=== PATIENT | female | born 1960 | race African-American/Black ===

== ENCOUNTER 2019-08-21 21:15 | Emergency (ER) | payer MEDICARE, MEDICAID ==
[~2019-08-21] VITALS: Ht 170.2 cm; Wt 115.9 kg
[~2019-08-21 21:15] MED LIST: AMLO5TAB9 PO; ATEN50TA PO
[2019-08-21] MEDS ORDERED: DILT120C48 PO (21:37)
[2019-08-21] MEDS ORDERED: METF-960 PO (21:37)
[2019-08-21] MEDS ORDERED: ATOR20TA86 PO (21:37)
[2019-08-21] MEDS ORDERED: APIX5TAB PO (21:37)
[2019-08-21] MEDS ORDERED: SPIR25 PO (21:37)
[2019-08-21] MEDS ORDERED: FOLI1 PO (21:37)
[2019-08-21 21:41] LABS: GLUCOSE,POINT OF CARE 112 MG/DL (70-110)
[2019-08-21 22:43] LABS: HEMATOCRIT 37.5 % (36-46); HEMOGLOBIN 12.6 g/dL (12.0-16.0); LYMPHOCYTES # (AUTO) 2.9 K/uL (1.0-4.8); LYMPHOCYTES % (AUTO) 54.1 % (22.0-44.0); MEAN CORPUSCULAR HEMOGLOBIN 31.6 pg (26.0-34.0); MEAN CORPUSCULAR HGB CONC 33.7 G/dL (31.0-37.0); MEAN CORPUSCULAR VOLUME 94 fL (80-100); MONOCYTES # (AUTO) 0.4 K/uL (0.1-1.0); MONOCYTES % (AUTO) 8.2 % (2.0-9.0); NEUTROPHILS # (AUTO) 1.7 K/uL (1.8-7.7); NEUTROPHILS % (AUTO) 32.7 % (40.0-70.0); PLATELET COUNT (AUTO) 208 K/uL (150-450); RED CELL DISTRIBUTION WIDTH 12.8 % (11.5-14.5)
[2019-08-21 22:56] LABS: ANION GAP 7 mmol/L (8-16); CALCIUM, TOTAL 9.2 mg/dL (8.8-10.5); CARBON DIOXIDE 28 mmol/L (22-29); CHLORIDE 108 mmol/L (98-107); CREATININE 1.06 mg/dL (0.60-1.30); GLOMERULAR FILTR. RATE CALC > 60 mL/min (>60); GLUCOSE,RANDOM 115 mg/dL (70-110); POTASSIUM 3.5 mmol/L (3.5-5.1); SODIUM SERUM 143 mmol/L (136-145); UREA NITROGEN, BLOOD 14 mg/dL (7-18)
[2019-08-21 23:22] LABS: ALANINE AMINOTRANSFERASE 25 U/L (12-78); ALBUMIN 3.6 g/dL (3.4-5.0); ALKALINE PHOSPHATASE 90 U/L (46-116); ASPARTATE AMINOTRANSFERASE 16 U/L (15-37); BILIRUBIN,TOTAL 0.8 mg/dL (0.1-1.0); CREATINE KINASE, TOTAL ONLY 330 U/L (26-192); TOTAL PROTEIN, SERUM 7.4 g/dL (6.4-8.2)
[2019-08-22] MEDS ORDERED: MAGNESIUM CHLORIDE 64 MG ER TABLET PO ONE (00:45)
[2019-08-22] MEDS ORDERED: MAGNESIUM OXIDE 400 MG TABLET PO ONE (01:00)
[2019-08-22 02:30] VITALS: BP 115/76
== END 2019-08-22 02:39 | disposition short-term general hospital (02) ==
LOC: EMS 21:17
DX: R07.9 Chest pain, unspecified (principal); E83.42 Hypomagnesemia; I10 Essential (primary) hypertension; E11.9 Type 2 diabetes mellitus without complications; I48.91 Unspecified atrial fibrillation; Z88.0 Allergy status to penicillin; Z88.8 Allergy status to other drugs, medicaments and biological substances; Z79.84 Long term (current) use of oral hypoglycemic drugs; Z79.899 Other long term (current) drug therapy
CPT/HCPCS: 83735; 93005

== ENCOUNTER 2021-06-21 17:41 | Inpatient (IN) | payer MEDICARE, MEDICAID ==
[~2021-06-21] VITALS: Ht 170.2 cm; Wt 151.8 kg
[~2021-06-21 17:41] MED LIST changes: +AMLO-257 PO; -AMLO5TAB9 PO; +APIX5TAB PO; +ATEN-72 PO; -ATEN50TA PO; +ATOR20TA86 PO; +DILT120C48 PO; +FOLI-130 PO; +METF-960 PO; +SPIR-37 PO
[2021-06-21] MEDS ORDERED: UBID30CA11 PO (17:58)
[2021-06-21] MEDS ORDERED: EZET10TA57 PO (17:58)
[2021-06-21] MEDS ORDERED: BUPR100SR PO (17:58)
[2021-06-21] MEDS ORDERED: PREG25 PO (17:58)
[2021-06-21] MEDS ORDERED: CHOL500013 PO (17:58)
[2021-06-21] MEDS ORDERED: HYDR200T38 PO (17:58)
[2021-06-21] MEDS ORDERED: QUET25TA PO (17:58)
[2021-06-21] MEDS ORDERED: ESCI20TA87 PO (17:58)
[2021-06-21] MEDS ORDERED: FURO40 PO (17:58)
[2021-06-21] MEDS ORDERED: ASPI-1444 PO (17:58)
[2021-06-21 18:55] LABS: BASOPHILS % (AUTO) 1.3 % (0.0-2.0); HEMATOCRIT 41.5 % (36-46); HEMOGLOBIN 13.6 g/dL (12.0-16.0); LYMPHOCYTES % (AUTO) 34.2 % (22.0-44.0); MEAN CORPUSCULAR HEMOGLOBIN 31.2 pg (26.0-34.0); MEAN CORPUSCULAR HGB CONC 32.8 G/dL (31.0-37.0); MEAN CORPUSCULAR VOLUME 95 fL (80-100); MONOCYTES # (AUTO) 0.7 K/uL (0.1-1.0); MONOCYTES % (AUTO) 11.4 % (2.0-9.0); NEUTROPHILS # (AUTO) 2.9 K/uL (1.8-7.7); NEUTROPHILS % (AUTO) 50.1 % (40.0-70.0); PLATELET COUNT (AUTO) 211 K/uL (150-450); RED BLOOD CELL COUNT(AUTO) 4.37 MIL/uL (4.00-5.20)
[2021-06-21 19:03] LABS: COVID AG,FIA SOURCE NASOPHARYNGEAL
[2021-06-21 19:18] LABS: CALCIUM, TOTAL 9.4 mg/dL (8.8-10.5); CREATININE 1.27 mg/dL (0.60-1.30); POTASSIUM 3.9 mmol/L (3.5-5.1)
[2021-06-21 19:20] LABS: PROTHROMBIN TIME 11.1 SEC (9.4-11.6)
[2021-06-21] MEDS ORDERED: ACETAMINOPHEN 500 MG TABLET PO ONE (19:30)
[2021-06-21 20:07] LABS: ALBUMIN 3.6 g/dL (3.4-5.0); BILIRUBIN,TOTAL 0.7 mg/dL (0.1-1.0); MAGNESIUM 1.8 mg/dL (1.80-2.40); PHOSPHORUS 3.9 mg/dL (2.5-4.9); TOTAL PROTEIN, SERUM 8.1 g/dL (6.4-8.2)
[2021-06-21] MEDS ORDERED: ONDANSETRON HCL 4 MG/2 ML VIAL IVP PRN ×2 (20:45)
[2021-06-21] MEDS ORDERED: MAGNESIUM HYDROXIDE SUSPENSION 30 ML UDCUP PO PRN (20:45)
[2021-06-21] MEDS ORDERED: 0.9% SODIUM CHLORIDE 10 ML SYRINGE IVP PRN (20:45)
[2021-06-21] MEDS ORDERED: BISACODYL 10 MG RECTAL RECTAL SUPPOSITORY PR PRN (20:45)
[2021-06-21] MEDS ORDERED: MORPHINE SULFATE 2 MG/ML SYRINGE IVP PRN (20:45)
[2021-06-21] MEDS ORDERED: ACETAMINOPHEN 325 MG TABLET PO PRN ×2 (20:45)
[2021-06-21] MEDS ORDERED: ZOLPIDEM TARTRATE 5 MG TABLET PO PRN (20:45)
[2021-06-21] MEDS ORDERED: HYDROCODONE/ACETAMINOPHEN 5-325 MG TABLET PO PRN (20:45)
[2021-06-21] MEDS ORDERED: QUEtiapine FUMARATE 25 MG TABLET PO SCH (21:00)
[2021-06-21] MEDS ORDERED: SPIRONOLACTONE 25 MG TABLET PO SCH (21:00)
[2021-06-21] MEDS: SPIRONOLACTONE 50 MG TABLET PO SCH (21:12)
[2021-06-21] MEDS: HYDROXYCHLOROQUINE SULFATE 200 MG TABLET PO SCH (21:12)
[2021-06-21] MEDS: DOCUSATE SODIUM 100 MG CAPSULE PO SCH (21:12)
[2021-06-21] MEDS: APIXABAN 5 MG TABLET PO SCH (21:12)
[2021-06-21] MEDS: PREGABALIN 25 MG CAPSULE PO SCH (21:12)
[2021-06-21] MEDS: NITROGLYCERIN 2% (1 GM=INCH) PACKET TP SCH (23:19)
[2021-06-22 04:30] LABS: BASOPHILS % (AUTO) 1.8 % (0.0-2.0); EOSINOPHILS % (AUTO) 3.8 % (1.0-6.0); HEMATOCRIT 41.9 % (36-46); LYMPHOCYTES # (AUTO) 2.1 K/uL (1.0-4.8); LYMPHOCYTES % (AUTO) 40.6 % (22.0-44.0); MEAN CORPUSCULAR HEMOGLOBIN 31.6 pg (26.0-34.0); MEAN CORPUSCULAR HGB CONC 33.4 G/dL (31.0-37.0); MEAN CORPUSCULAR VOLUME 95 fL (80-100); MONOCYTES # (AUTO) 0.5 K/uL (0.1-1.0); MONOCYTES % (AUTO) 10.6 % (2.0-9.0); NEUTROPHILS # (AUTO) 2.2 K/uL (1.8-7.7); NEUTROPHILS % (AUTO) 43.2 % (40.0-70.0); PLATELET COUNT (AUTO) 194 K/uL (150-450); RED BLOOD CELL COUNT(AUTO) 4.43 MIL/uL (4.00-5.20)
[2021-06-22 04:53] LABS: ALANINE AMINOTRANSFERASE 33 U/L (12-78); ALBUMIN 3.6 g/dL (3.4-5.0); ALKALINE PHOSPHATASE 83 U/L (46-116); ANION GAP 7 mmol/L (8-16); ASPARTATE AMINOTRANSFERASE 20 U/L (15-37); BILIRUBIN,TOTAL 0.7 mg/dL (0.1-1.0); CALCIUM, TOTAL 9.3 mg/dL (8.8-10.5); CARBON DIOXIDE 29 mmol/L (22-29); CHLORIDE 103 mmol/L (98-107); CHOL/HDL RATIO 2.8 (3.9-5.7); CHOLESTEROL 227 mg/dL (131-200); CREATININE 1.11 mg/dL (0.60-1.30); GLOMERULAR FILTR. RATE CALC > 60 mL/min (>60); GLUCOSE,RANDOM 118 mg/dL (70-110); HDL CHOLESTEROL 80 mg/dL (40-60); LDL CHOL (CALC.) 138 mg/dL (0-130); POTASSIUM 4.1 mmol/L (3.5-5.1); SODIUM SERUM 139 mmol/L (136-145); TOTAL PROTEIN, SERUM 8.1 g/dL (6.4-8.2); TRIGLYCERIDES 47 mg/dL (15-150); UREA NITROGEN, BLOOD 26 mg/dL (7-18)
[2021-06-22] MEDS: NITROGLYCERIN 2% (1 GM=INCH) PACKET TP SCH (08:15)
[2021-06-22 08:34] VITALS: BP 140/99
[2021-06-22] MEDS ORDERED: CHOLECALCIFEROL (VIT D3) 5,000 [125 MCG] UNITS CAPSULE PO SCH (09:00)
[2021-06-22] MEDS ORDERED: DILTIAZEM HCL CD 120 MG ER CAPSULE PO SCH (09:00)
[2021-06-22] MEDS ORDERED: EZETIMIBE 10 MG TABLET PO SCH (09:00)
[2021-06-22] MEDS ORDERED: PANTOPRAZOLE SODIUM 40 MG DR TABLET PO SCH (09:00)
[2021-06-22] MEDS ORDERED: ATORVASTATIN CALCIUM 20 MG TABLET PO SCH (09:00)
[2021-06-22] MEDS ORDERED: FUROSEMIDE 40 MG TABLET PO SCH (09:00)
[2021-06-22] MEDS ORDERED: ASPIRIN 81 MG CHEWABLE TABLET PO SCH (09:00)
[2021-06-22] MEDS ORDERED: ESCITALOPRAM OXALATE 20 MG TABLET PO SCH (09:00)
[2021-06-22] MEDS: DOCUSATE SODIUM 100 MG CAPSULE PO SCH (09:58)
[2021-06-22] MEDS: PREGABALIN 25 MG CAPSULE PO SCH (09:58)
[2021-06-22] MEDS: HYDROXYCHLOROQUINE SULFATE 200 MG TABLET PO SCH (09:59)
[2021-06-22] MEDS: APIXABAN 5 MG TABLET PO SCH (09:59)
[2021-06-22] MEDS: SPIRONOLACTONE 50 MG TABLET PO SCH (10:02)
[2021-06-22 11:38] LABS: CALCIUM, TOTAL 8.9 mg/dL (8.8-10.5); CREATININE 1.17 mg/dL (0.60-1.30); POTASSIUM 3.9 mmol/L (3.5-5.1)
[2021-06-22 11:53] VITALS: BP 144/81
[2021-06-22 16:43] VITALS: BP 138/90
== END 2021-06-22 17:35 | disposition home or self-care (01) | DRG 309 ==
LOC: EMS 17:41 → 5S 20:42
PROVIDERS: ADMIT Internal Medicine; ATTEND Internal Medicine
DX: I48.0 Paroxysmal atrial fibrillation (principal); Z68.43 Body mass index [BMI] 50.0-59.9, adult; E11.9 Type 2 diabetes mellitus without complications; I11.0 Hypertensive heart disease with heart failure; I50.9 Heart failure, unspecified; E78.5 Hyperlipidemia, unspecified; M48.00 Spinal stenosis, site unspecified; M79.7 Fibromyalgia; E66.9 Obesity, unspecified; I25.10 Atherosclerotic heart disease of native coronary artery without angina pectoris; Z20.822 Contact with and (suspected) exposure to COVID-19; M19.90 Unspecified osteoarthritis, unspecified site; Z95.0 Presence of cardiac pacemaker; Z79.899 Other long term (current) drug therapy; Z79.82 Long term (current) use of aspirin; Z79.01 Long term (current) use of anticoagulants; Z88.0 Allergy status to penicillin; Z88.8 Allergy status to other drugs, medicaments and biological substances
CPT/HCPCS: 71045; 80048; 80053; 80061; 82550; 83735; 83880; 84100; 84484; 85025; 85610; 85730; 93005; 93306; 99285; 36415-L1; 36415-TC